=== PATIENT | male | born 2000 | race Caucasian/White ===

== ENCOUNTER 2022-01-23 17:02 | Emergency (ER) | payer OTHER, BC, SELFPAY ==
[2022-01-23 17:13] VITALS: BP 138/76; PULSE 76; RESP 16; TEMP 37; O2SAT 98; BMI 17.4
[2022-01-23 17:17] VITALS: BP 138/76; PULSE 89; RESP 18; O2SAT 99
--- NOTE | 2022-01-23 17:32 | DI.RAD.S_ITS ---
PROCEDURE: XR FOOT RT MIN 3V INDICATIONS: right heel pain after slamming foot down TECHNIQUE: 3 views of the foot were acquired. COMPARISON: None. FINDINGS: Bones: No fractures or dislocations. No suspicious bony lesions. Soft tissues: No tibiotalar joint effusion. Achilles tendon appears normal. IMPRESSION: Unremarkable right foot radiographs Approved by: Alexandr Yanez M.D. on 01/23/2022 at 16:59
--- NOTE | 2022-01-23 17:32 | ED_ITS ---
HPI - Extremity Injury (Lower) General Chief Complaint: Extremity Injury, Lower Stated Complaint: Right foot injury Time Seen by Provider: 01/23/22 17:11 Source: patient Mode of arrival: Family Vehicle Limitations: no limitations History of Present Illness HPI Narrative: This is a 21-year-old male who comes to the emergency department with complaint of right foot injury. Patient states he was helping his dad breakdown boxes he was crushing them with his foot when 1 of the boxes did not completely breakdown in it slid off to the side landing with his weight on his heel. Patient states majority of the pain is in the heel of his foot. He can otherwise weightbear on the front portion of his foot without issue. He denies any ankle or leg pain otherwise. He states there may be some slight swelling of the heel but does not appreciate much. He denies any other injury or changes. Patient states he is otherwise healthy, no prior surgeries, no daily medications. He has not taken any medication for pain and defers any currently. Patient does have crutches here with him today but they are a little short for his height. He is a nonsmoker, occasional alcohol, occasional THC no other illicit. Related Data Allergies Allergy/AdvReac Type Severity Reaction Status Date / Time No Known Drug Allergies Allergy Verified 01/23/22 17:15 Review of Systems Review of Systems ROS Unobtainable: All systems reviewed & are unremarkable except as noted in HPI and below Patient History Social History Smoking Status: Never smoker Smoking Status: Never smoker alcohol intake frequency: holidays/special occasions only Substance Use Type: marijuana Exam Narrative Exam Narrative: GENERAL: Alert and oriented x three, male in mild distress. HEENT: Head normocephalic, atraumatic, EOMI, pupils reactive, face symmetric, moist mucous membranes NECK: Supple, full range of motion EXTREMITIES: Normal range of motion, no clubbing or edema. Neurovascularly intact. Patient has mild tenderness over the heel of the foot with direct palpation. No tenderness laterally over the calcaneus or with movement, no tenderness over the Achilles. Patient does not have any other bony tenderness of the foot, toes, ankle or lower extremity. No warmth, erythema or swelling is appreciated. There is no lacerations, ecchymosis or other skin changes noted. NEUROLOGICAL: Cranial nerves II through XII grossly intact. Moving all extremities SKIN: Warm, dry, no petechiae, no rashes or lesions. Initial Vital Signs Initial Vital Signs: Vital Signs Temperature 98.6 F 01/23/22 17:13 Pulse Rate 76 01/23/22 17:13 Respiratory Rate 16 01/23/22 17:13 Blood Pressure 138/76 01/23/22 17:13 Pulse Oximetry 98 01/23/22 17:13 Course Orders Ordered: ED Orders 01/23/22 17:32 XR foot RT min 3V Stat Vital Signs Vital signs: Vital Signs - 8 hr 01/23/22 17:13 01/23/22 17:17 Temperature 98.6 F Pulse Rate 76 89 Respiratory Rate 16 18 Blood Pressure 138/76 138/76 Pulse Oximetry 98 99 MDM - Extremity Injury (Lower) Imaging Data Extremity x-ray #1: Radiologist's Impression: [address] [address] XRay Report Signed Patient: Giovani Duffy MR#: [id number] : 2000 Acct:[id number] Age/Sex: 21 / M Date of Service: 01/23/22 Loc: ED Accession Number: [id number] ?? Procedure: XR foot RT min 3V Ordering Provider: Amarilis Bryant D.O. PROCEDURE:? XR FOOT RT MIN 3V ? INDICATIONS:? right heel pain after slamming foot down ? TECHNIQUE:? 3 views of the foot were acquired.? ? COMPARISON:? None. ? FINDINGS:? ? Bones:? No fractures or dislocations.? No suspicious bony lesions.? ? Soft tissues:? No tibiotalar joint effusion.? Achilles tendon appears normal.? ? ? IMPRESSION:? Unremarkable right foot radiographs ? ? ? Approved by: Alexandr Yanez M.D. on 01/23/2022 at 16:59? [facility] Narrative Medical decision making narrative: Patient has no acute fracture noted on imaging. Plan for crutches, weight bear as tolerated and follow up for repeat imaging in the next week if no resolution of symptoms. Discharge Plan Departure Patient Disposition: Home Clinical Impression: Contusion of right heel Instructions: DI for Foot Pain Activity Restrictions/Additional Instructions: Follow-up next 7-10 days for recheck if your symptoms have not resolved. If you continue to have pain you may need repeat imaging in the next 7-10 days. Weightbear as tolerated. Elevated affected body part to decrease swelling. OK to use ice pack on the affected body part. Use for 15-20 minutes each time, for 5-6x per day. If you develop worsening pain, numbness, tingling, discoloration of the affected body part either see your doctor for an urgent re-assessment, or return to the Emergency Department. Return to the Emergency Department for any new or worsening symptoms. Referrals: Clifford Oconnor MD [Primary Care Provider] -
[2022-01-23 18:13] VITALS: PULSE 75; RESP 18
== END 2022-01-23 18:13 | disposition home or self-care (01) ==
PROVIDERS: Emergency Provider Emergency Medicine; PCP Family Medicine
DX: S90.31XA Contusion of right foot, initial encounter (principal); W22.8XXA Striking against or struck by other objects, initial encounter
CPT/HCPCS: 73630; 99281; 99283